=== PATIENT | male | born 1955 | race Caucasian/White ===

== ENCOUNTER → 2017-12-23 09:51 | Outpatient (CLI) | payer OTHER, SELFPAY ==
--- NOTE | 2017-12-23 11:04 | PM.TREADMILL ---
Cardiac Stress Test Report Referral & Results Date Patient Seen: 12/23/17 Time Patient Seen: 11:04 Requesting provider: Hermelindo Lewis Indication: Fatigue Rest ECG: Unremarkable Procedure Note: Today following both written and verbal informed consent, the patient was exercised according to a standard [facility] protocol. The patient exercised for a total of 6 min 49 sec achieving a maximum heart rate of 150 for. Patient's maximum systolic blood pressure was 196. This was an estimated 7.0 MET's. There are no ST-T segment changes noted Normal heart rate and blood pressure response to exercise Rare PVC and PACs were identified Functional aerobic impairment rated about 15% on the sedentary scale Impression: No ischemic change Average to slightly less than average exercise capacity Please note: Actual ECG tracings can be found in the PACS system.
== END ==
PROVIDERS: PCP Student in an Organized Health Care Education/Training Program; Visit Provider Student in an Organized Health Care Education/Training Program
DX: R53.83 Other fatigue (principal)
CPT/HCPCS: 93016; 93017; 93018

== ENCOUNTER 2024-07-15 10:15 | Outpatient (RCR) | payer MEDICARE, OTHER, SELFPAY | END 2024-07-15 12:30 | LOC: CAR 10:15 | PROVIDERS: PCP Student in an Organized Health Care Education/Training Program; Referring Provider Thoracic Surgery (Cardiothoracic Vascular Surgery); Visit Provider Thoracic Surgery (Cardiothoracic Vascular Surgery) | DX: Z95.1 Presence of aortocoronary bypass graft (principal) | CPT/HCPCS: 93798 ==